=== PATIENT | female | born 2000 | race Caucasian/White ===

== ENCOUNTER 2022-03-02 11:30 | Observation (INO) ==
[2022-03-02] MEDS ORDERED: 0.9 % Sodium Chloride 1,000 ML IVC ONE (13:54)
[2022-03-02 15:21] LABS: Hematocrit 41.7 % (35.3-44.9); Hemoglobin 13.9 g/dL (11.5-15.4); Mean Corpuscular HGB Conc 33.3 g/dL (31.6-35.5); Mean Corpuscular Hemoglobin 28.5 pg (28.0-33.3); Mean Corpuscular Volume 85.6 fL (83.0-100.0); Mean Platelet Volume 9.7 fL (9.4-12.4); Platelet Count 304 K/mcL (140-400); Red Blood Count 4.87 M/mcL (3.82-4.97); Red Cell Distribution Width 12.8 % (11.5-14.5); White Blood Count 8.4 K/mcL (4.3-11.1)
[2022-03-02 15:42] LABS: BUN/Creatinine Ratio 14 (6-26); Blood Urea Nitrogen 8 mg/dL (6-20); Calcium 9.4 mg/dL (8.6-10.3); Carbon Dioxide 26 mEq/L (23-29); Chloride 104 mEq/L (98-107); Glucose 98 mg/dL (70-105); Osmolality,Calculated 280 (280-300); Potassium 3.8 mEq/L (3.5-5.1); Sodium 136 mEq/L (136-145); eGFR For African Americans > 60 (> 60); eGFR For Non-African Americans > 60 (> 60)
[2022-03-02 16:46] LABS: Alanine Aminotransferase 100 Units/L (7-52); Albumin 4.5 g/dL (3.5-5.7); Albumin/Globulin Ratio 1.3 (1.1-2.2); Alkaline Phosphatase 31 Units/L (34-104); Aspartate Amino Transferase 62 Units/L (13-39); Bilirubin,Direct 0.2 mg/dL (0.0-0.2); Bilirubin,Indirect 0.7 mg/dL (0.0-1.0); Bilirubin,Total 0.9 mg/dL (0.3-1.0); Globulin 3.6 g/dL (2.4-3.5); Total Protein 8.1 g/dL (6.4-8.9)
[2022-03-02 17:43] LABS: Albumin 4.2 g/dL (3.5-5.7); Albumin/Globulin Ratio 1.3 (1.1-2.2); Bilirubin,Direct 0.1 mg/dL (0.0-0.2); Bilirubin,Indirect 0.8 mg/dL (0.0-1.0); Bilirubin,Total 0.9 mg/dL (0.3-1.0); Globulin 3.2 g/dL (2.4-3.5); Total Protein 7.4 g/dL (6.4-8.9)
[2022-03-02] MEDS ORDERED: 0.9 % Sodium Chloride 1,000 ML IV ONE (18:36)
[2022-03-02] MEDS ORDERED: *HR* Propofol 200 MG/20 ML VIAL IVP ONE ×2 (18:59→20:34)
[2022-03-02] MEDS ORDERED: Ondansetron 4 MG/2 ML VIAL ONE (19:07)
[2022-03-02] MEDS ORDERED: Lidocaine -MPF 2% 2 ML VIAL ONE (19:07)
[2022-03-02] MEDS ORDERED: *HR* Rocuronium Bromide 50 MG/5 ML VIAL ONE ×2 (19:07→20:51)
[2022-03-02] MEDS ORDERED: *HR* Succinylcholine 200 MG/10 ML VIAL IVP ONE (19:07)
[2022-03-02] MEDS ORDERED: *HR* Belladonna Alkaloids/Opium 30 MG RECTAL SUPPOSITORY RC ONE (19:09)
[2022-03-02] MEDS ORDERED: Bupivacaine/EPI 1:200k 0.25% 50 ML VIAL ONE (19:09)
[2022-03-02] MEDS ORDERED: *HR* FentaNYL (PF) 100 MCG/2 ML VIAL ONE ×2 (19:11→20:24)
[2022-03-02] MEDS ORDERED: *HR* Midazolam HCl 2 MG/2 ML VIAL ONE (19:12)
[2022-03-02] MEDS ORDERED: *HR* FentaNYL (PF) 100 MCG/2 ML VIAL IVP PRN (19:29)
[2022-03-02] MEDS ORDERED: Ondansetron 4 MG/2 ML VIAL IVP PRN ×2 (19:29→23:02)
[2022-03-02] MEDS ORDERED: Promethazine 6.25 MG in Water for inj. (sterile) 20 ML IVPB PRN (19:29)
[2022-03-02] MEDS ORDERED: Albuterol 2.5 MG/3 ML NEBULIZER IH PRN (19:29)
[2022-03-02 19:33] LABS: INR 1.2; Prothrombin Time 13.3 Seconds (9.4-12.1)
[2022-03-02 19:36] LABS: Activated Partial Thrombo Time 34.5 Seconds (26.0-36.0)
[2022-03-02] MEDS ORDERED: Lidocaine HCL 4 ML Topical Solution (Laryng-O-Jet Kit Sterile Pak) TP ONE (19:51)
[2022-03-02] MEDS ORDERED: *HR* HYDROMORPHONE 2 MG/ML VIAL ONE (21:17)
[2022-03-02] MEDS ORDERED: *HR* OxyCODONE/APAP 5/325 TABLET PO PRN (23:02)
[2022-03-02] MEDS ORDERED: 0.9 % Sodium Chloride 1,000 ML IVC SCH (23:02)
[2022-03-02] MEDS ORDERED: Naloxone 0.4 MG/ML INJ IVP PRN (23:02)
[2022-03-03] MEDS: Ibuprofen 600 MG TABLET PO PRN ×2 (03:02→09:15)
[2022-03-03 05:00] VITALS: O2SAT 99
[2022-03-03 07:07] VITALS: BP 120/71; PULSE 85; TEMP 97.9
[2022-03-03] MEDS ORDERED: Simethicone 80 MG TAB.CHEW PO PRN (08:27)
== END 2022-03-03 09:44 | disposition home or self-care (01) ==
LOC: 1NENUOBS 11:30 → EMEROOARM 11:30 → 1NENUOBS 19:26
PROVIDERS: ADMIT Obstetrics & Gynecology; ATTEND Obstetrics & Gynecology